=== PATIENT | male | born 1930 | race Caucasian/White ===

== ENCOUNTER 2017-12-06 05:48 | Emergency (ER) | payer OTHER ==
[~2017-12-06] VITALS: Ht 188 cm; Wt 67.6 kg
--- NOTE | 2017-12-06 05:50 | NUR ---
PT [id number] FROM HOME FOR MIDSTERNAL CHEST CONTUSION. PT TRIPPED AND FELL ON ONE STEP. PT DENIES HEAD TRAUMA, KO, NVD, SOB. PT IS AAOX4. RESPIRATIONS EVEN AND UNLABORED. NO ACUTE DISTRESS NOTED AT THIS TIME. PT PLACED ON MONITOR. WILL CONTINUE TO MONITOR
--- NOTE | 2017-12-06 05:55 | NUR ---
MD AT BEDSIDE FOR EVALUATION
--- NOTE | 2017-12-06 06:05 | NUR ---
COSTUME CUTTER AT BEDSIDE FOR BLOOD DRAW
--- NOTE | 2017-12-06 06:15 | NUR ---
CALLED RADIOLOGY FOR XRAY
--- NOTE | 2017-12-06 06:18 | NUR ---
PT BROUGHT BY RADIOLOGY FOR XRAY
--- NOTE | 2017-12-06 06:34 | NUR ---
PT BROUGHT BACK FROM RADIOLOGY
[2017-12-06 06:57] LABS: CALCIUM, SERUM 8.6 mg/dL (8.5-10.1); CARBON DIOXIDE 28 mmol/L (21-32); CHLORIDE 107 mmol/L (98-107); GLUCOSE 118 mg/dL (74-106); SODIUM SERUM 141 mmol/L (136-145); TROPONIN I < 0.017 ng/mL (0.00-0.056); UREA NITROGEN, BLOOD 19 mg/dL (7-18)
[2017-12-06 07:07] LABS: INR 0.97 (0.87-1.13)
[2017-12-06 07:14] LABS: BASOPHILS % (AUTO) 0.4 % (0.0-2.0); HEMATOCRIT 44 % (39-51); HEMOGLOBIN 13.5 g/dL (13.5-17.5); LYMPHOCYTES # (AUTO) 1.3 /CMM (0.8-4.8); LYMPHOCYTES % (AUTO) 17.6 % (20.0-44.0); MEAN CORPUSCULAR HEMOGLOBIN 29 PG (26.0-33.0); MEAN CORPUSCULAR HGB CONC 31 g/dl (31.0-36.0); MEAN CORPUSCULAR VOLUME 96 fL (80-96); MONOCYTES # (AUTO) 0.7 /CMM (0.1-1.30); MONOCYTES % (AUTO) 9.5 % (2.0-12.0); NEUTROPHILS # (AUTO) 5.2 /CMM (1.8-8.9); NEUTROPHILS % (AUTO) 67.5 % (43.0-81.0); PLATELET COUNT (AUTO) 134 /CMM (150-450); RDW COEFFICIENT OF VARIATION 13.4 (11.5-15.0); RED BLOOD CELL COUNT(AUTO) 4.62 MIL/uL (4.5-6.0); WHITE BLOOD COUNT (AUTO) 7.6 K/uL (4.3-11.0)
--- NOTE | 2017-12-06 07:26 | NUR ---
Patient discharged to home in stable condition. Written and verbal after care instructions given. Patient verbalizes understanding of instruction. Pt ambulatory with a steady gait
[2017-12-06 07:27] VITALS: BP 135/78
== END 2017-12-06 07:28 | disposition home or self-care (01) ==
LOC: ER 05:49
DX: S20.212A Contusion of left front wall of thorax, initial encounter (principal); Z95.818 Presence of other cardiac implants and grafts; W10.8XXA Fall (on) (from) other stairs and steps, initial encounter; Y93.89 Activity, other specified; Y92.89 Other specified places as the place of occurrence of the external cause; Y99.8 Other external cause status
CPT/HCPCS: 36415; 70450; 71100; 80048; 84484; 85025; 85730; 93005; 99285; A4606; A6402; Z7610